=== PATIENT | female | born 1980 | race Caucasian/White ===

== ENCOUNTER → 2023-12-24 16:35 | Outpatient (REF) | payer OTHER, SELFPAY | LOC: WDC 16:35 | PROVIDERS: ATTENDING PHYSICIAN Nurse Practitioner Adult Health | DX: Z12.31 Encounter for screening mammogram for malignant neoplasm of breast (principal) | CPT/HCPCS: 77063; 77067 ==

== ENCOUNTER → 2024-06-05 16:26 | Outpatient (REF) | payer OTHER, SELFPAY | LOC: PAVMRI 16:26 | PROVIDERS: ATTENDING PHYSICIAN Family Medicine | DX: M25.511 Pain in right shoulder (principal); S43.421S Sprain of right rotator cuff capsule, sequela | CPT/HCPCS: 73221 ==

== ENCOUNTER → 2024-06-30 10:22 | Outpatient (REF) | payer OTHER, SELFPAY | LOC: PAVMRI 10:22 | PROVIDERS: ATTENDING PHYSICIAN Family Medicine | DX: M54.2 Cervicalgia (principal); V89.2XXA Person injured in unspecified motor-vehicle accident, traffic, initial encounter | CPT/HCPCS: 72141 ==

== ENCOUNTER → 2024-12-24 15:33 | Outpatient (REF) | payer OTHER, SELFPAY | LOC: WDC 15:33 | PROVIDERS: ATTENDING PHYSICIAN Nurse Practitioner Obstetrics & Gynecology; FAMILY PHYSICIAN Nurse Practitioner Adult Health | DX: Z12.31 Encounter for screening mammogram for malignant neoplasm of breast (principal) | CPT/HCPCS: 77063; 77067 ==